=== PATIENT | female | born 1995 | race African-American/Black ===

== ENCOUNTER 2019-09-28 04:33 | Emergency (ER) | payer OTHER ==
[~2019-09-28] VITALS: Ht 160 cm; Wt 67.0 kg
--- NOTE | 2019-09-28 04:38 | PHYS DOC ---
General Adult HPI: HPI: ".. The tip my toes.. are getting numb.. it started on my Rt.. big.. and then on my Lt big toe... ..I just started a new job.. 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 I am standing on my feet for 8 hrs.. .. Patient is a 24 year old female who presents with above hx and new onset of numbness in the tips of first toes on both feet. Patient does have a long history of bunions. Patient denies any trauma but has been standing on her feet with a new job and steel toes. Patient does smoke. Patient denies other health history. Patient denies any history of immunosuppression. No recent travel outside the [place] area.. No hx of trauma. No hx MS. No history of back pain. Capillary refill is equal to fingers. Does have significant bunions with mild lateral deviation of feet and toe structures. Review of Systems: Review of Systems: Constitutional: Denies fever or chills Eyes: Denies change in visual acuity HENT: Denies nasal congestion or sore throat Respiratory: Denies cough or shortness of breath Cardiovascular: Denies chest pain or edema GI: Denies abdominal pain, nausea, vomiting, bloody stools or diarrhea : Denies dysuria Musculoskeletal: Complaints of toe pain and numbness Integument: Denies rash Neurologic: Denies headache, focal weakness or sensory changes Endocrine: Denies polyuria or polydipsia Lymphatic: Denies swollen glands Psychiatric: Denies depression or anxiety Heart Score: Risk Factors: Risk Factors: DM, Current or recent (<one month) smoker, HTN, HLP, family history of CAD, obesity. Risk Scores: Score 0 - 3: 2.5% MACE over next 6 weeks - Discharge Home Score 4 - 6: 20.3% MACE over next 6 weeks - Admit for Clinical Observation Score 7 - 10: 72.7% MACE over next 6 weeks - Early Invasive Strategies Family History: Family History: Noncontributory to presentation Current Medications: Current Meds: See nursing for home meds Allergies: Allergies: No known drug allergies Physical Exam: PE: Constitutional: , no acute distress, non-toxic appearance. [] HENT: Normocephalic, atraumatic, bilateral external ears normal, oropharynx moist, no oral exudates, nose normal. [] Eyes: PERRLA, EOMI, conjunctiva normal, no discharge. [] Neck: Normal range of motion, no tenderness, supple, no stridor. [] Cardiovascular:Heart rate regular rhythm, no murmur [] Lungs & Thorax: Bilateral breath sounds equal apex with scattered wheezes on auscultation [] Abdomen: Bowel sounds normal, soft, no tenderness, no masses, no pulsatile masses. [] Skin: Warm, dry, no erythema, no rash. [] Back: No tenderness, no CVA tenderness. [] Extremities: No tenderness, no cyanosis, no clubbing, ROM intact, no edema. [] Except findings and first toes both feet as per HPI Neurologic: Alert and oriented X 3, normal motor function, normal sensory function, no focal deficits noted. [] Psychologic: Affect anxious, judgement normal, mood normal. [] EKG: EKG: [] Radiology/Procedures: Radiology/Procedures: [] Course & Med Decision Making: Course & Med Decision Making Pertinent Labs and Imaging studies reviewed. (See chart for details) Patient to make sure that steel toes shoes are not compressing on her first toes. Patient to stop smoking. Patient take half of a daily aspirin. Patient follow-up with primary care. May need to replace shoes if they are compressing on her toes. \\ Impression: 1. Peripheral neuropathy versus peripheral vascular restriction 2. Tobacco use [] Dragon Disclaimer: Dragon Disclaimer: This electronic medical record was generated, in whole or in part, using a voice recognition dictation system. Departure Departure: Disposition: 01 HOME/RESIDENCE PRIOR TO ADM Condition: STABLE Referrals: PCP,NO (PCP) Justification of Admission: Justification of Admission: Justification of Admission Dx: N/A Dragon Disclaimer This chart was dictated in whole or in part using Voice Recognition software in a busy, high-work load, and often noisy Emergency Department environment. It may contain unintended and wholly unrecognized errors or omissions. Dragon Disclaimer This chart was dictated in whole or in part using Voice Recognition software in a busy, high-work load, and often noisy Emergency Department environment. It may contain unintended and wholly unrecognized errors or omissions. VIV ACUÑA MD Sep 28, 2019 04:38
[2019-09-28 04:45] VITALS: BP 129/59
[2019-09-28] MEDS ORDERED: ASPIRIN 325 MG TABLET ONE (05:25)
[2019-09-28] MEDS ORDERED: ASPIRIN 325 MG TABLET PO ONE (05:30)
[2019-09-28 05:42] LABS: BACTERIA,URINE FEW /HPF (0-FEW); BARBITURATES NEG (NEG); BENZODIAZEPINES NEG (NEG); BILIRUBIN,URINE NEG (NEG); CANNABINOIDS POS (NEG); CLARITY,URINE CLEAR; COCAINE NEG (NEG); COLOR,URINE YELLOW; GLUCOSE,URINE NEG (NEG); METHADONE NEG (NEG); NITRITE,URINE NEG (NEG); OPIATES NEG (NEG); PHENCYCLIDINE NEG (NEG); RBC,URINE 0 /HPF (0-2); SQUAMOUS EPITHELIAL CELL,UR MANY /LPF
[2019-09-28 05:46] LABS: AMPHETAMINE/METHAMPHETAMINE NEG (NEG)
== END 2019-09-28 05:30 | disposition home or self-care (01) ==
LOC: ER 04:33
DX: R20.0 Anesthesia of skin (principal); Z72.0 Tobacco use
CPT/HCPCS: 36415; 80307; 81001; 81025; 87086; 99283